=== PATIENT | female | born 1985 | race African-American/Black ===

== ENCOUNTER 2022-01-14 12:48 | Emergency (ER) | payer OTHER ==
[~2022-01-14] VITALS: Ht 157.5 cm; Wt 71.0 kg
[2022-01-14] MEDS ORDERED: KETOROLAC 60MG/2ML VIAL IM ONE (17:30)
[2022-01-14 17:32] LABS: BASOPHILS % 0.7 % (0.0-2.0); EOSINOPHILS % 4.3 % (0.0-5.0); HEMATOCRIT. 37.4 % (36.0-48.0); HEMOGLOBIN. 12.4 g/dL (12.0-16.0); LYMPHOCYTES % 20.1 % (20.0-50.0); MEAN CORPUSCULAR HEMOGLOBIN 26.8 pg (28.0-32.0); MEAN CORPUSCULAR VOLUME 80.9 fL (81.0-99.0); MEAN PLATELET VOLUME 8.1 fl (7.4-10.4); MONOCYTES % 8.1 % (2.0-8.0); NEUTROPHILS % 66.8 % (40.0-76.0); PLATELET 369 x1000/uL (130-400); RED BLOOD CELL COUNT 4.62 mill/uL (4.2-5.4); RED CELL DISTRIBUTION WIDTH 15.2 % (11.6-14.6)
[2022-01-14 17:44] LABS: CHLORIDE 109 mEq/L (98-107)
[2022-01-14 17:53] LABS: HCG SCREEN NEGATIVE
[2022-01-14] MEDS ORDERED: TOPUD MT (18:23)
[2022-01-14 18:25] VITALS: BP 132/75
== END 2022-01-14 18:28 | disposition home or self-care (01) ==
LOC: ER 12:48
DX: S21.102A Unspecified open wound of left front wall of thorax without penetration into thoracic cavity, initial encounter (principal); M25.512 Pain in left shoulder; M54.2 Cervicalgia; X58.XXXA Exposure to other specified factors, initial encounter; Y93.89 Activity, other specified; Y92.013 Bedroom of single-family (private) house as the place of occurrence of the external cause
CPT/HCPCS: 36415; 71045; 80053; 84484; 84703; 85025; 93005; 96372; 99285; J1885

== ENCOUNTER 2022-09-14 23:16 | Emergency (ER) | payer OTHER ==
[~2022-09-14] VITALS: Ht 165.1 cm; Wt 52.0 kg
[~2022-09-14 23:16] MED LIST: TOPUD MT
[2022-09-14 23:35] VITALS: BP 124/75; O2SAT 100
[2022-09-15] MEDS ORDERED: IBUP-2029 MT (00:12)
[2022-09-15 00:45] VITALS: PULSE 100; RESP 16; TEMP 98.4
== END 2022-09-15 00:46 | disposition home or self-care (01) ==
LOC: ER 23:16
DX: S06.9XAA Unspecified intracranial injury with loss of consciousness status unknown, initial encounter (principal); V00.131A Fall from skateboard, initial encounter; Y93.89 Activity, other specified; Y92.89 Other specified places as the place of occurrence of the external cause; Y99.8 Other external cause status
CPT/HCPCS: 81025; 99282

== ENCOUNTER 2024-04-04 19:08 | Emergency (ER) | payer OTHER ==
[~2024-04-04] VITALS: Ht 157.5 cm; Wt 55.0 kg
[~2024-04-04 19:08] MED LIST changes: +IBUP-2029 MT
[2024-04-04 19:27] VITALS: O2SAT 98
[2024-04-04] MEDS ORDERED: T3 PO (20:25)
[2024-04-04] MEDS ORDERED: IBUP-2029 MT (20:25)
[2024-04-04] MEDS: IBUPROFEN 600MG TABLET PO ONE (20:36)
[2024-04-04 20:41] VITALS: BP 131/65; PULSE 89; RESP 18; TEMP 37.1; O2SAT 98
== END 2024-04-04 20:42 | disposition home or self-care (01) ==
LOC: ER 19:08
DX: R68.84 Jaw pain (principal); K08.89 Other specified disorders of teeth and supporting structures; F12.90 Cannabis use, unspecified, uncomplicated; Z79.899 Other long term (current) drug therapy; Z98.890 Other specified postprocedural states
CPT/HCPCS: 99282

== ENCOUNTER 2024-07-07 02:57 | Emergency (ER) | payer OTHER ==
[~2024-07-07] VITALS: Ht 160 cm; Wt 55.0 kg
[2024-07-07 03:15] VITALS: BP 122/53; TEMP 36.7; O2SAT 99
[2024-07-07 03:17] VITALS: PULSE 112; RESP 18; O2SAT 98
[2024-07-07] MEDS: ACETAMINOPHEN 325MG TABLET PO ONE (03:59)
== END 2024-07-07 04:43 | disposition left against medical advice (07) ==
LOC: ER 02:57
DX: M79.602 Pain in left arm (principal); F12.90 Cannabis use, unspecified, uncomplicated; Z98.890 Other specified postprocedural states; Z79.899 Other long term (current) drug therapy
CPT/HCPCS: 99282